=== PATIENT | female | born 1995 | race Caucasian/White ===

== ENCOUNTER → 2017-03-11 | Outpatient (CLI) | payer OTHER ==
[~2017-03-11] MED LIST: MOTR200T44 PO; TYLE325T5 PO
--- NOTE | 2017-03-11 10:28 | REP ---
MRI of the left knee: The patient is a history of prior left knee surgery. The type surgery performed is not delineated. Current study is performed for symptoms of meniscus tear. There are no comparison plain films or comparison MRI studies. The study is performed with proton density and T2-weighted data sets in sagittal, axial and coronal projections. There is a joint effusion. There is a Menchaca's cyst. There is T2 signal compatible with edema in the fascial planes posteriorly adjacent to the Menchaca's cyst and along the posterior margin of the distal femoral shaft. The articular cartilage of the patella and trochlea is unremarkable. The articular cartilage of the medial lateral compartments is unremarkable. The the patient has had anterior cruciate graft procedure. There are interference screws in the distal femur and proximal tibia. There is significant susceptibility artifact arising from the interference screws significantly degrading image quality. I have the impression that the femoral tunnel is positioned posteriorly in relation to the tibial tunnel. I am unable to identify anterior cruciate graft fibers on either sagittal, coronal over the axial views. This could be artifact from the significant susceptibility artifacts. However, I cannot entirely discounted injury to the graft. The posterior cruciate ligament is unremarkable. The quadriceps and patellar tendons are unremarkable. The lateral collateral ligament complex is unremarkable. There is T2 signal adjacent to the medial collateral ligament compatible with medial collateral ligament sprain. The lateral meniscus has a normal appearance. In the lateral medial meniscus posterior horn there signal linear signal intersecting with the inferior articular surface compatible with posterior horn flap tear. The adjacent to this there appears to be degenerative signal within the posterior horn. The anterior horn and body of the medial meniscus are unremarkable. There is T2 signal adjacent to the interference screws in the distal femur proximal tibia of uncertain significance, susceptibility artifact versus marrow edema. Impression: Findings are compatible with a small flap tear posteromedially in the medial meniscus with adjacent degenerative signal. The lateral meniscus is unremarkable. There is T2 signal in the fascial planes posteriorly along the posterior margin of the distal femoral shaft and adjacent to the Menchaca's cyst compatible with soft tissue edema. There is a joint effusion. There is T2 signal adjacent to the interference screws in the femur and tibia, artifact from the susceptibility artifact versus marrow edema. On the sagittal images the femoral tunnel appears to be placed posteriorly in relation to the tibial tunnel. I am unable to identify anterior cruciate graft fibers. This could be artifact from the significant susceptibility artifacts arising from interference screws or could represent graft injury. There is a probable medial collateral ligament sprain. Signed by Moise Phillips MD 03/11/2017 10:19 A
== END ==
LOC: M RAD 07:26
PROVIDERS: ATTEND Orthopaedic Surgery
DX: S83.207A Unspecified tear of unspecified meniscus, current injury, left knee, initial encounter (principal); M71.22 Synovial cyst of popliteal space [Baker], left knee; M25.462 Effusion, left knee

== ENCOUNTER 2019-05-29 11:35 | Emergency (ER) | payer MEDICAID, OTHER, SELFPAY ==
[~2019-05-29] VITALS: Ht 175.3 cm; Wt 46.9 kg
[2019-05-29 12:28] LABS: BASO % 0.4 % (0.0-1.0); EOS # 0.1 10^3/uL (0.0-0.50); EOS % 1.3 % (0.0-3.0); HEMATOCRIT 37.2 % (36.0-47.0); HEMOGLOBIN 12.3 g/dl (12.0-15.5); LYMPH # 2.2 10^3/uL (1.5-6.5); LYMPH % 32.2 % (24.0-44.0); MEAN CORPUSCULAR HEMOGLOBIN 29.5 pg (27.0-33.0); MEAN CORPUSCULAR HGB CONC 33.1 g/dl (32.0-36.5); MEAN CORPUSCULAR VOLUME 89.2 fl (80.0-96.0); MONO # 0.5 10^3/uL (0.0-0.8); MONO % 7.3 % (0.0-5.0); NEUTROPHILS # 3.9 10^3/uL (1.8-7.7); NEUTROPHILS % 58.5 % (36.0-66.0); PLATELET COUNT, AUTOMATED 242 10^3/uL (150-450); RED BLOOD COUNT 4.17 10^6/uL (4.00-5.40); WHITE BLOOD COUNT 6.7 10^3/uL (4.0-10.0)
[2019-05-29 12:50] LABS: ALBUMIN 4.2 GM/DL (3.2-5.2); ALT/SGPT 19 U/L (12-78); BILIRUBIN,DIRECT 0.2 MG/DL (0.0-0.2); BILIRUBIN,TOTAL 0.6 MG/DL (0.2-1.0); BLOOD UREA NITROGEN 10 MG/DL (7-18); CALCIUM LEVEL 9.1 MG/DL (8.5-10.1); CARBON DIOXIDE LEVEL 30 MEQ/L (21-32); CHLORIDE LEVEL 107 MEQ/L (98-107); CREATININE FOR GFR 0.82 MG/DL (0.55-1.30); GLOMERULAR FILTRATION RATE > 60.0 (>60); GLUCOSE, FASTING 83 MG/DL (70-100); LIPASE 163 U/L (73-393); POTASSIUM SERUM 3.9 MEQ/L (3.5-5.1); SODIUM LEVEL 143 MEQ/L (136-145); TOTAL PROTEIN 6.6 GM/DL (6.4-8.2)
--- NOTE | 2019-05-29 15:40 | REP ---
PELVIC ULTRASOUND: Real-time sonographic evaluation of the pelvis performed utilizing transabdominal and endovaginal technique. The bladder measures 8.4 x 6.3 x 9.9 cm. Uterus measures 8.1 x 3.5 x 5.7 cm. Endometrial thickness is 4 mm. IUD is seen in the endometrial canal appearing to be in good position. Ovaries are normal in size and echotexture, right ovary measuring 2.8 x 2.1 x 2.0 cm and left ovary 2.2 x 1.9 x 1.8 cm. There is no adnexal mass or free fluid. No torsion is seen bilaterally, resistive index right ovary 0.70 and left ovary 0.59. IMPRESSION: IUD appears to be well positioned in the endometrial canal. The study is otherwise normal. Electronically Signed by Moise Underwood MD 05/30/2019 12:12 A
[2019-05-29 16:03] VITALS: BP 109/72
[2019-05-29] MEDS ORDERED: FLAG500T PO (16:12)
[2019-05-29 16:40] LABS: CHLAMYDIA DNA AMPLIFICATION NEGATIVE (NEGATIVE); GC DNA AMPLIFICATION NEGATIVE (NEGATIVE)
== END 2019-05-29 16:29 | disposition home or self-care (01) ==
LOC: M ED 11:35
DX: N76.0 Acute vaginitis (principal); Z97.5 Presence of (intrauterine) contraceptive device

== ENCOUNTER → 2019-12-08 | Outpatient (CLI) | payer MEDICAID, OTHER ==
[~2019-12-08] MED LIST changes: +FLAG500T PO
--- NOTE | 2019-12-09 09:25 | REP ---
MRI left knee without contrast: History: Cruciate ligament strain. The patient reports giving out, recurrent sprain. Rule out meniscal tear. Comparison left knee MRI study of March 11, 2017. Technique: Sagittal, axial, and coronal proton density T2-weighted scans were obtained with and without fat saturation in the usual fashion. Findings: There is considerable magnetic field susceptibility artifact emanating from the femoral and tibial intraosseous tunnel hardware associated with anterior cruciate ligament repair. The transferred tendon graft is intact across the synovium and as seen within the tibial tunnel. It does not appear disrupted. Posterior cruciate ligament is unremarkable. Cortical and medullary bone signal intensity are otherwise normal. There is a small quantity of knee joint fluid. A tiny Menchaca's cyst is seen. Medial and lateral patellar retinacular structures appear intact. No lateral meniscal tear is seen. The tear pattern previously observed in the posterior horn of the medial meniscus on the 2017 prior study is improved. There is still a little increased signal intensity in the posterior horn at the inferior articular margin. No displaced meniscal material is seen. No new meniscal tear is appreciated. No articular cartilaginous lesion is seen. No evidence of medial or lateral collateral ligament disruption. Impression: Status post ACL reconstruction surgery. ACL tendon graft appears intact. Improved appearance of the previously noted posterior horn medial meniscal tear. No new meniscal defect is seen. Minimal joint fluid and small Menchaca's cyst. Electronically Signed by Edmundo Rice MD 12/09/2019 10:00 A
== END ==
LOC: M RAD 11:25
PROVIDERS: ATTEND Orthopaedic Surgery Sports Medicine
DX: M71.21 Synovial cyst of popliteal space [Baker], right knee (principal); S83.512A Sprain of anterior cruciate ligament of left knee, initial encounter; X58.XXXA Exposure to other specified factors, initial encounter; Y92.9 Unspecified place or not applicable; Y93.9 Activity, unspecified

== ENCOUNTER → 2019-12-19 | Outpatient (CLI) | payer OTHER ==
--- NOTE | 2019-12-19 17:25 | REP ---
Clinical: Pain with history of anterior cruciate ligament (ACL) repair. Technique: Axial noncontrast images through the left knee with coronal and sagittal re-formations. Findings: The patient is noted to be status post ACL reconstruction surgery. The ACL tendon graft appears intact. The osseous structures are relatively normal and there is no evidence for periosteal reaction or surrounding inflammatory changes to suggest osteomyelitis or infectious/inflammatory change. Surrounding musculature and subcutaneous tissues appear relatively normal. No significant effusion. Impression: Evidence for ACL reconstruction surgery. No obvious acute process or pathology appreciated. Electronically Signed by Shaheen Castellanos MD 12/19/2019 05:16 P
== END ==
LOC: M RAD 14:35
PROVIDERS: ATTEND Orthopaedic Surgery Sports Medicine
DX: S83.512A Sprain of anterior cruciate ligament of left knee, initial encounter (principal); X58.XXXA Exposure to other specified factors, initial encounter; Y92.9 Unspecified place or not applicable; Y93.9 Activity, unspecified

== ENCOUNTER → 2020-02-19 | Outpatient (CLI) | payer OTHER | LOC: M LABSMTC 11:56 | PROVIDERS: ATTEND Anesthesiology | DX: Z01.818 Encounter for other preprocedural examination (principal); Z11.59 Encounter for screening for other viral diseases ==

== ENCOUNTER 2020-02-22 08:40 | Day surgery (SDC) | payer OTHER ==
[~2020-02-22] VITALS: Ht 153.7 cm; Wt 47.6 kg
[~2020-02-22 08:40] MED LIST changes: +LR 1,000 ML IV ONE; +ceFAZolin SOD 2 GM in IV 1 EA IV ONE
[2020-02-22] MEDS ORDERED: ROPIvacaine 0.5% 30ML INJECTION (J2795 PER 1MG) As Ordered ONE (11:13)
[2020-02-22] MEDS ORDERED: LIDOCAINE 2% 100MG/5ML SDV (FOR ANES.) As Ordered ONE (11:35)
[2020-02-22] MEDS ORDERED: dexameTHASONE 4 MG/ML 1ML VIAL (J1100 PER 1MG) As Ordered ONE (11:35)
[2020-02-22] MEDS ORDERED: fentaNYL 250 MCG/5 ML INJECTION (J3010) As Ordered ONE (11:35)
[2020-02-22] MEDS ORDERED: ONDANSETRON 4MG/2ML VIAL As Ordered ONE (11:35)
[2020-02-22] MEDS ORDERED: propofoL 200 MG/20 ML VIAL As Ordered ONE (11:35)
[2020-02-22] MEDS ORDERED: MIDAZOLAM INJ 2MG/2ML VIAL (J2250 PER 1MG) As Ordered ONE (11:35)
[2020-02-22] MEDS ORDERED: ePHEDrine SULFATE 25 MG/5 ML(5MG/ML) SYRINGE As Ordered ONE (11:41)
[2020-02-22] MEDS ORDERED: ACETAMINOPHEN 1000MG 100ML IV BTL (OFIRMEV) (J0131 PER 10MG) As Ordered ONE (12:17)
[2020-02-22] MEDS ORDERED: fentaNYL 100 MCG/2 ML INJECTION (J3010) As Ordered ONE (14:11)
[2020-02-22] MEDS: fentaNYL 100 MCG/2 ML INJECTION (J3010) IV PRN ×2 (14:12→14:17)
[2020-02-22] MEDS ORDERED: ONDANSETRON 4MG/2ML VIAL IV PRN ×2 (14:15)
[2020-02-22] MEDS ORDERED: ACETAMINOPHEN TAB 650MG DOSE (2X325MG) PO PRN (14:15)
[2020-02-22] MEDS ORDERED: MORPHINE 2 MG/ML 1ML VIAL (J2270) IV PRN (14:15)
[2020-02-22] MEDS ORDERED: METOCLOPRAMIDE INJ 10MG/2ML VIAL (J2765 PER 1) IV PRN (14:15)
[2020-02-22] MEDS ORDERED: LR 1,000 ML IV SCH ×2 (14:15)
[2020-02-22] MEDS ORDERED: PERCOCET 5MG/325MG TAB PO PRN ×2 (14:15)
[2020-02-22 15:30] VITALS: BP 119/83
--- NOTE | 2020-02-28 09:46 | RO ---
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 PROCEDURE PERFORMED: Left knee arthroscopy, tibial tunnel bone grafting, and preparation of femoral tunnel without removal of interference screw. SURGEON: Dr. Efraín Fitzpatrick MOLD YARD CRANE OPERATOR: Deny Clemente PA-C. ANESTHESIA: General anesthetic. DATABASE DEVELOPMENT PROJECT MANAGER: Emily OPERATIVE PREAMBLE: This 25-year-old female had two failed ACL cadaver graft reconstructions. She had marked dilation on the tibial side up to 15 or 16 mm. She had appropriate placed tunnel on the femur side as well as appropriately placed metal interference screw. We talked about the pros, cons, risk, benefits of going ahead with the surgery as she continued to have an unstable knee with obvious ACL deficiency. She wished to go ahead. We reiterated the risks in preoperative holding, marked the left lower extremity, and proceeded to surgery. DESCRIPTION OF PROCEDURE: The patient was brought to the operating theater. They were placed supine on the operating room table. All bony prominences were padded. Sequential compression devices (SCDs) were used on the contralateral leg. 2 grams IV Ancef was administered. 24-inch tourniquet was applied to the left thigh and appropriately padded. Left-sided stress positioner was used. The limb was prepped and draped in the usual sterile fashion, allowing over 3 minutes prep solution drying time. Preoperative time-out was performed to confirm the site, the patient, and the surgery. We began by elevating the leg, inflating the tourniquet to 250 mmHg. I made standard high anterolateral as well as anteromedial arthroscopy portals. I examined the entire intra-articular extent of the knee. Patellofemoral cartilage was normal as was the medial and lateral tibiofemoral cartilage. Medial and lateral meniscus appeared normal. ACL graft appeared attenuated, stretched out, and insufficient. It was going up to the tibial tunnel. In the femoral tunnel, there was about 50% of the fibers remaining. This was debrided using a shaving instrument. The entire ACL graft was removed. Knee was hyperflexed to 130 degrees. A combination of mary, curettes, and arthroscopic biter instruments were used to moved the tissue from the previously made femoral tunnel. Attempted to identify the screw. This was buried under bone; however, the distal end of the previous T-shaped metal implant that was initially used on her first ACL reconstruction was identified and left in situ as well as the screw. Bone tunnel appeared to be in appropriate location. Bone tunnel length was about 2 cm long. Back wall was intact. Guidewire was placed into the tunnel and reamed up to 7 mm. Edges were thoroughly cleaned with a shaving instrument. I then turned my attention to the tibial side. I made the previous anteromedial incision on the proximal anteromedial border of the tibia. Again, this was extended down through skin and subcutaneous tissues. Identified the previously made tunnel. I passed a guidewire up into the tunnel. Sequentially reamed up to a size 14 mm reamer. I left small shell of surrounding bone about a millimeter around in the proximal tibia so it does not blow out the proximal intra- articular entrance to the tibial tunnel. I thoroughly prepared the tunnel down to bleeding bone all the way around, 360 degrees. Took arthroscopy pictures throughout. I then impacted the 14 mm Arthrex pre-contoured dowel into the proximal hole. The previously inserted interference screw was attempted to be reamed down; however, I had to work around this and taking it out would have resulted in too large of a tibial defect, so I backed up the size 14 mm dowel with the size 16 mm dowel. This achieved quite good interference fit, both in the proximal end and distal end of the tunnel. The dowel was then cut short. This was smoothed down to smooth edges and in the inferior most aspect, there was just a small remaining tibial area that was bone grafted with the Arthrex AlloSync as well. Final arthroscopy pictures were taken. Edges of the tunnels were cleaned up using shaving instrument and smoothed down and slightly recessed. Knee was thoroughly irrigated. Scope was withdrawn. Tourniquet taken down. All arthroscopy portals as well as the incision was thoroughly irrigated with normal saline. Subcutaneous tissue was closed with interrupted #2-0 Vicryl and skin with #3-0 Monocryl. 5 mL of 0.25% ropivacaine was instilled in and around the incision sites. Steri-Strips were applied. Wound was cleaned with wet and dry dressing, followed by application of Adaptic, 4 x 8 gauze, ABD dressing, and sterile 6-inch Adrian bandage. The patient was woken up from the general anesthetic, transferred off the operating table, and taken to postanesthetic care unit in stable condition. All sponge, needle, and instrument counts were correct. Estimated blood loss 50 mL. PLAN: The patient is to be weightbearing as tolerated. Use crutches for 1-2 weeks. She will be discharged home according to day surgery criteria. Prescription called into the pharmacy of choice. Followup in the office in 2 weeks' time. The orthodontic technician assistant, Deny Clemente, was instrumental in achieving visualization, passing instruments, holding instruments, and completing the case. CRISTINO
== END 2020-02-22 15:38 | disposition home or self-care (01) ==
LOC: M SDC 08:40
PROVIDERS: ATTEND Orthopaedic Surgery Sports Medicine
DX: M23.52 Chronic instability of knee, left knee (principal); G43.909 Migraine, unspecified, not intractable, without status migrainosus; F17.290 Nicotine dependence, other tobacco product, uncomplicated
CPT/HCPCS: 29888; 81025; C1762; J0131; J0690; J1100; J2250; J2405; J2795; J3010

== ENCOUNTER → 2020-06-17 | Outpatient (CLI) | payer OTHER ==
[~2020-06-17] MED LIST changes: +ISOVUE-300 61% 50ML VIAL As Ordered ONE; -LR 1,000 ML IV ONE; +PROHANCE 279.3MG/ML 5ML VIAL As Ordered ONE; -ceFAZolin SOD 2 GM in IV 1 EA IV ONE
--- NOTE | 2020-06-17 13:54 | REPVR ---
PROCEDURE INFORMATION: Exam: MR Left Upper Extremity Joint Without and With Contrast; Shoulder Exam date and time: 06/17/2020 8:43 AM Age: 25 years old Clinical indication: Pain; Shoulder; Left; Additional info: Other synovitis and tenosynovitis, left shoulder TECHNIQUE: Imaging protocol: MR of the Left upper extremity without and with contrast. Exam focused on the shoulder. 3D rendering (Not supervised by radiologist): MIP and/or 3D reconstructed images were created by the technologist. Contrast material: PROHANCE; Contrast volume: 2 ml; Contrast route: INTRA-ARTICULAR (ARTHROGRAM); COMPARISON: XA - SHOULDER ARTHROGRAM WITH MR-CT LEFT 06/17/2020 7:27:41 AM (report not provided) FINDINGS: Bones and cartilage: Mild chondromalacia involves the glenohumeral joint. There are mild productive and degenerative cystic changes along the greater tuberosity. Joint spaces: Prior to the injection, fluid in the glenohumeral joint is within physiologic limits. Injected contrast is present in the joint without extension into the subacromial, subdeltoid bursa. The acromioclavicular joint is maintained. Glenoid labrum: No tear of the glenoid labrum is identified. Bursae: The subacromial, subdeltoid bursa contains trace fluid prior to the contrast injection. Supraspinatus tendon: There is mild to moderate supraspinatus tendinopathy with some partial-thickness bursal surface fraying. Infraspinatus tendon: There is mild infraspinatus tendinopathy. Subscapularis tendon: Unremarkable. No evidence of tear. Teres minor tendon: Unremarkable. No evidence of tear. Tendon of biceps brachii: Unremarkable. No evidence of tear. Glenohumeral ligaments: Unremarkable. Muscles: Unremarkable. Soft tissues: Unremarkable. IMPRESSION: 1. Degenerative changes as described. 2. Rotator cuff tendinopathy as described, without full-thickness tear identified. 3. Trace fluid in the subacromial, subdeltoid bursa, suggesting bursitis. 4. No tear of the glenoid labrum identified. COMMENTS: See separate arthrogram injection procedure report for procedural description and findings. Electronically signed by: Sridhar Giron On 06/17/2020 13:54:32 PM
--- NOTE | 2020-07-02 09:18 | REP ---
LEFT SHOULDER ARTHROGRAM The procedure was performed under the direct supervision of Dr. Rice. The benefits and risks including, but not limited to pain, infection, bleeding, and anaphylaxis were explained to the patient and informed consent was obtained. The left glenohumeral joint space was localized using fluoroscopic guidance. The skin was prepped and draped in a sterile fashion. 1% Lidocaine was used as a local anesthetic. Using fluoroscopic guidance, a 22-gauge needle was inserted and advanced into the joint. 0.5 mL of Isovue-300 was injected to verify placement. 11 mL of a solution containing 20 mL of sterile saline and 0.15 mL of ProHance was injected. The needle was then removed. The patient tolerated the procedure well and there were no immediate complications. Less than 6 seconds of fluoroscopy time was utilized for this procedure. [facility]ERSel[facility]
== END ==
LOC: M RADPRO 06:34
PROVIDERS: ATTEND Orthopaedic Surgery Sports Medicine
DX: M65.812 Other synovitis and tenosynovitis, left shoulder (principal)
CPT/HCPCS: 23350; 73223; 77002; A9576; Q9967

== ENCOUNTER → 2020-07-06 | Outpatient (CLI) | payer OTHER ==
[~2020-07-06] MED LIST changes: -ISOVUE-300 61% 50ML VIAL As Ordered ONE; -PROHANCE 279.3MG/ML 5ML VIAL As Ordered ONE
== END ==
LOC: M LABSMTC 08:09
PROVIDERS: ATTEND Anesthesiology
DX: Z01.812 Encounter for preprocedural laboratory examination (principal); Z20.828 Contact with and (suspected) exposure to other viral communicable diseases
CPT/HCPCS: C9803; U0003

== ENCOUNTER 2020-07-11 10:16 | Day surgery (SDC) | payer OTHER ==
[~2020-07-11] VITALS: Ht 153.7 cm; Wt 48.0 kg
[~2020-07-11 10:16] MED LIST changes: +LR 1,000 ML IV ONE; +ceFAZolin SOD 2 GM in IV 1 EA IV ONE
[2020-07-11] MEDS ORDERED: ONDANSETRON 4MG/2ML VIAL As Ordered ONE (10:57)
[2020-07-11] MEDS ORDERED: MIDAZOLAM INJ 2MG/2ML VIAL (J2250 PER 1MG) As Ordered ONE (10:57)
[2020-07-11] MEDS ORDERED: KETOROLAC 60MG 2ML VIAL As Ordered ONE (10:57)
[2020-07-11] MEDS ORDERED: SUGAMMADEX SODIUM 500 MG/5 ML VIAL (BRIDION) As Ordered ONE (10:57)
[2020-07-11] MEDS ORDERED: ROCURONIUM BROMIDE 50 MG/5 ML VIAL As Ordered ONE (10:57)
[2020-07-11] MEDS ORDERED: fentaNYL 100 MCG/2 ML INJECTION (J3010) As Ordered ONE ×2 (10:57→14:58)
[2020-07-11] MEDS ORDERED: dexameTHASONE 4 MG/ML 1ML VIAL (J1100 PER 1MG) As Ordered ONE (10:57)
[2020-07-11] MEDS ORDERED: propofoL 200 MG/20 ML VIAL As Ordered ONE (10:57)
[2020-07-11] MEDS ORDERED: LIDOCAINE 2% 100MG/5ML SDV (FOR ANES.) As Ordered ONE (10:57)
[2020-07-11] MEDS ORDERED: ACETAMINOPHEN 1000MG 100ML IV BTL (OFIRMEV) (J0131 PER 10MG) As Ordered ONE (10:57)
[2020-07-11] MEDS ORDERED: ROPIvacaine 0.5% 30ML INJECTION (J2795 PER 1MG) As Ordered ONE (13:25)
[2020-07-11] MEDS ORDERED: HYDROmorphone HCL 2 MG/ML 1ML VIAL (J1170) As Ordered ONE (13:36)
[2020-07-11] MEDS: fentaNYL 100 MCG/2 ML INJECTION (J3010) IV PRN ×4 (14:55→15:10)
[2020-07-11] MEDS: oxyCODONE 5MG TAB PO PRN ×2 (14:55→15:30)
[2020-07-11] MEDS ORDERED: oxyCODONE 5MG TAB As Ordered ONE (14:58)
[2020-07-11] MEDS ORDERED: LR 1,000 ML IV SCH ×2 (15:00→15:15)
[2020-07-11] MEDS ORDERED: MEPERIDINE INJ 25 MG/ML VIAL (J2175) IV PRN (15:00)
[2020-07-11] MEDS ORDERED: ONDANSETRON 4MG/2ML VIAL IV PRN ×2 (15:00→15:15)
[2020-07-11] MEDS ORDERED: METOCLOPRAMIDE INJ 10MG/2ML VIAL (J2765 PER 1) IV PRN (15:00)
[2020-07-11] MEDS ORDERED: ACETAMINOPHEN TAB 650MG DOSE (2X325MG) PO PRN (15:15)
[2020-07-11] MEDS ORDERED: PERCOCET 5MG/325MG TAB PO PRN (15:15)
[2020-07-11] MEDS ORDERED: MORPHINE 2 MG/ML 1ML VIAL (J2270) IV PRN (15:15)
[2020-07-11 16:50] VITALS: BP 144/87
--- NOTE | 2020-07-16 08:50 | RO ---
DATE OF OPERATION: 07/11/2020 PREOPERATIVE DIAGNOSIS: Left knee ACL instability. POSTOPERATIVE DIAGNOSIS: Left knee ACL instability. PLANNED PROCEDURE: Left knee hamstring autograft to ACL reconstruction, second stage revision to prior bone grafting. PROCEDURE PERFORMED: Left knee hamstring autograft to ACL reconstruction, second stage revision to prior bone grafting. SURGEON: Efraín Fitzpatrick MD LINUX ENGINEER: ANESTHESIA: OPERATIVE PREAMBLE: This 25-year-old female had ACL reconstructions. She is to have second stage revision following initial bone grafting by myself. We discussed the pros, cons, risks and benefits of this, marked the left lower extremity and proceeded to surgery. OPERATIVE REPORT: The patient was brought to the operating theater and administered general anesthetic. She was placed supine on the operating table. All bony prominences were padded. SCDs were used on the down leg as well as bear hugger. Stress positioner was used to patients left side. 2 gm of IV Ancef was administered prior to the start of the case. The limb was prepped and draped in usual sterile fashion with Chlorhexidine-based prep solution allowing over 3 minutes for the prep solution drying time prior to draping. Preoperative time out was performed confirming the site of patients surgery. She had full range of motion on EUA. She had obvious 2+ Ryne and 2+ anterior drawer. Small incision centered over the left anteromedial border of the tibia using the old incision and carried down slightly distally was made, carried through subcutaneous tissue achieving meticulous hemostasis. Tourniquet was inflated prior to this after limb was elevated at 250 mmHg. Identified the hamstring tendon. I released any bands. I used the open-ended tendon harvester to fully harvest the retained gracilis tendons after opening the sartorius fascia. I then aligned each end of the tendons at length of approximately 19 cm long, whipstitched each end for length of 1 inch on either end of the tendons using #2 FiberWire suture. One end was affixed the TightRope RT Arthrex button and passed through the ABS button loop system. I tripled over the graft. Docked the free end and those sutures affixed over the graft as well as over the ABS button suture system. This was tied in place. Tension was placed. I used locking loop #2 FiberWire suture 1 and 2 cm beyond each end of the graft with knots buried inside and cut short with sequential tension and taping of the grafts. The graft length was 6 cm. The graft end was 8 mm on both ends. Graft was placed on tension and covered with wet gauze. I turned my attention to the interarticular portion of the knee. Arthroscopy portals were made anterolaterally as well as anteromedially. Medial and lateral gutters were entered and no loose body. No evidence of cartilage damage to the patellofemoral joint, medial or lateral compartments. Normal appearing medial and lateral meniscus. Bone graft appeared to have been fully healed. I used the Arthrex inside-out femoral guide. I drilled for my planned tunnel in appropriate anatomic location. This was right in line with the previously based metal screw. As such I made the planned tunnel site just slightly anteriorly to this as two-part posteriorly would have blown out the posterior back wall. She had relatively small anatomy. I reversed reamed this for length of just short of 2 cm. The reamer contacted the metal screw and the tip broke off. However, I was able to remove that. I cleaned up the edge of the tunnel, took arthroscopy pictures throughout the case. I turned my attention to the tibial tunnel. I made this anterior to the PCL as well as in line with the anterior more lateral meniscus. I drilled this for length of approximately 5 cm. This measured 8 mm in diameter as well and then I cleaned up the tunnel. I placed a PassPort cannula anteromedially. I used FiberStick sutures to pass suture through the tibial tunnel. I removed the PassPort cannula. Graft was then brought in and locked into the femoral tunnel, succeeded to place for length of approximately 18 mm. This was slightly shorter and anterior due to the revisional circumstances and previously placed metal screw. I then brought the graft out the tibial side using backup sutures as well as luggage tag type stitch of the ABS Button System. This was fully secured in place. Arthroscopy pictures were taken and saved onto the system. Knee was cycled through range of motion, ABS button 14 mm was then affixed to the sutures as well as backup sutures and tightened down into place using internal locking mechanism. Grafts were stapled and had very solid endpoint that I was quite satisfied with. Sutures were cut short on both ends and final tensioning was achieved on the femoral side as well prior to cutting the sutures. Wounds were thoroughly irrigated. Subcutaneous tissue closed with interrupted 2- 0 Vicryl sutures and skin with 3-0 Monocryl. 20 mL of 1% Marcaine was instilled in and around the incision sites including hamstring harvest site. Steri-Strips were applied. Adaptic, 4 x 8 gauze and ABD dressing and over wrapped with sterile 6 inch Adrian bandage and the patient placed into hinged knee brace and locked. Tourniquet was taken down prior to the end of the case. Total tourniquet time 94 minutes. No complications. Estimated blood loss 50 mL. The patient was transferred off the operating table and taken to postanesthesia care unit in stable condition after having been woken up from general anesthesia. Donna Pressley was instrumental on holding retractors, achieving visualization during the case. Plan for the patient will be discharge home according to day surgery criteria. She will follow up in the office in two weeks time. She will be weightbearing as tolerated but likely on crutches for at least the first two weeks. The plan for the patient is to be going fairly slow in terms of physical therapy. This is a third time revision. Prescriptions were sent into her pharmacy of choice. CRISTINO
== END 2020-07-11 16:50 | disposition home or self-care (01) ==
LOC: M SDC 10:16
PROVIDERS: ATTEND Orthopaedic Surgery Sports Medicine
DX: M23.52 Chronic instability of knee, left knee (principal); J45.909 Unspecified asthma, uncomplicated; G43.909 Migraine, unspecified, not intractable, without status migrainosus; F17.218 Nicotine dependence, cigarettes, with other nicotine-induced disorders
CPT/HCPCS: 29888; 81025; C1713; J0131; J0690; J1100; J1170; J1885; J2250; J2405; J2765; J2795; J3010

== ENCOUNTER → 2020-10-07 | Outpatient (CLI) | payer OTHER ==
[~2020-10-07] MED LIST changes: -LR 1,000 ML IV ONE; -ceFAZolin SOD 2 GM in IV 1 EA IV ONE
--- NOTE | 2020-10-07 13:40 | REP ---
INDICATION: PAIN IN RT KNEE COMPARISON: None. TECHNIQUE: AP, lateral, bilateral oblique and sunrise views. FINDINGS: The osseous structures and joint spaces are intact and normal. There is no evidence for acute fracture or dislocation. No joint effusion is appreciated. Surrounding soft tissues are unremarkable. No subcutaneous emphysema or radiodense foreign body. IMPRESSION: Normal examination. No acute fracture or dislocation. <Electronically signed by Shaheen Castellanos > 10/07/20 [id number]
== END ==
LOC: M SOG 09:07 → M ADAMS 09:07
PROVIDERS: ATTEND Orthopaedic Surgery Sports Medicine
DX: M25.561 Pain in right knee (principal)

== ENCOUNTER → 2020-11-24 | Outpatient (CLI) | payer OTHER ==
--- NOTE | 2020-11-24 11:20 | REP ---
INDICATION: LEFT KNEE PAIN. COMPARISON: None. TECHNIQUE: Four views left knee. FINDINGS: Metallic hardware is seen in the distal femur and proximal tibia. The joint spaces are normal in thickness. There appears to be a punctate metallic density in the posteromedial joint space. Few tiny calcifications are seen superior to the tibial spines. There does not appear to be a significant joint effusion radiographically. IMPRESSION: Postsurgical changes as above. <Electronically signed by Moise Underwood > 11/24/20 [id number]
== END ==
LOC: M SOG 09:24
PROVIDERS: ATTEND Orthopaedic Surgery Sports Medicine
DX: S83.512D Sprain of anterior cruciate ligament of left knee, subsequent encounter (principal); W18.42XA Slipping, tripping and stumbling without falling due to stepping into hole or opening, initial encounter; Z47.89 Encounter for other orthopedic aftercare; Z96.7 Presence of other bone and tendon implants

== ENCOUNTER → 2020-12-04 | Outpatient (CLI) | payer OTHER ==
--- NOTE | 2020-12-04 10:25 | REP ---
INDICATION: EVAL FOR ACL GRAFT RUPTURE, ORTHO AFTERCARE. COMPARISON: 12/08/2019, 03/11/2017. TECHNIQUE: Multiple sequences obtained in the axial, coronal and sagittal planes. FINDINGS: Menisci: The tear of the posterior horn of the medial meniscus is again noted, as seen on prior studies. No new meniscal tear is seen. Cruciate ligaments: Intact. ACL graft appears intact with no obvious tear. Evaluation is somewhat limited due to metallic hardware in the distal femur and proximal tibia. There is an area of high signal on T2 weighted images along the intact ACL graft in the distal tibial tunnel which may represent some complex fluid and/or granulation tissue at that location. Collateral ligaments: Intact. Extensor mechanism/patellar retinacula: Intact. Cartilage: Smooth, no osteochondral defect. There is mild chondromalacia posteriorly and peripherally of the lateral femoral condyle. Bone marrow: Normal signal, no edema or occult fracture. Joint fluid: There is a small joint effusion. Popliteal region: There is a tiny amount of fluid in the medial popliteal fossa. IMPRESSION: Somewhat limited exam due to metallic hardware in the distal femur and proximal tibia. No obvious tear of the ACL graft. There is high signal along the intact graft in the region of the distal tibial tunnel which may represent some complex fluid and/or granulation tissue at that location. Posterior horn medial meniscus again demonstrates prior tear, no new tear is seen. Small joint effusion. Tiny amount of fluid in the medial popliteal fossa. <Electronically signed by Moise Underwood > 12/04/20 1020
== END ==
LOC: M RAD 07:45
PROVIDERS: ATTEND Orthopaedic Surgery Sports Medicine
DX: Z47.89 Encounter for other orthopedic aftercare (principal)

== ENCOUNTER 2021-02-15 11:26 | Emergency (ER) | payer OTHER ==
[~2021-02-15] VITALS: Ht 152.4 cm; Wt 46.8 kg
[2021-02-15] MEDS ORDERED: ACET-683 PO (11:36)
[2021-02-15] MEDS ORDERED: NS 1,000 ML IV SCH (12:30)
[2021-02-15] MEDS ORDERED: KETOROLAC 30 MG/ML 1ML VIAL IV ONE (12:30)
[2021-02-15 12:46] LABS: URINE PREG TEST NEGATIVE (NEGATIVE)
[2021-02-15 12:49] LABS: BASO # 0.1 10^3/uL (0.0-0.2); BASO % 0.4 % (0.0-1.0); EOS # 0.1 10^3/uL (0.0-0.5); EOS % 0.6 % (0.0-3.0); HEMATOCRIT 47.6 % (36.0-47.0); HEMOGLOBIN 15.3 g/dl (12.0-15.5); LYMPH % 15.9 % (24.0-44.0); MEAN CORPUSCULAR HEMOGLOBIN 29.7 pg (27.0-33.0); MEAN CORPUSCULAR HGB CONC 32.1 g/dl (32.0-36.5); MEAN CORPUSCULAR VOLUME 92.4 fl (80.0-96.0); MONO # 0.7 10^3/uL (0.0-0.8); MONO % 5.8 % (2.0-8.0); NEUTROPHILS # 9.7 10^3/uL (1.5-8.5); NEUTROPHILS % 77.1 % (36.0-66.0); PLATELET COUNT, AUTOMATED 302 10^3/uL (150-450); RED BLOOD COUNT 5.15 10^6/uL (4.00-5.40); WHITE BLOOD COUNT 12.5 10^3/uL (4.0-10.0)
[2021-02-15 13:15] LABS: BLOOD UREA NITROGEN 7 MG/DL (7-18); CALCIUM LEVEL 10.2 MG/DL (8.5-10.1); CARBON DIOXIDE LEVEL 29 MEQ/L (21-32); CHLORIDE LEVEL 105 MEQ/L (98-107); CREATININE FOR GFR 0.75 MG/DL (0.55-1.30); GLOMERULAR FILTRATION RATE > 60.0 (>60); GLUCOSE, FASTING 114 MG/DL (70-100); POTASSIUM SERUM 3.9 MEQ/L (3.5-5.1); SODIUM LEVEL 140 MEQ/L (136-145)
--- NOTE | 2021-02-15 13:29 | REP ---
INDICATION: trauma,pain. COMPARISON: None. TECHNIQUE: Five views lumbosacral spine. FINDINGS: There is no compression fracture or malalignment. There is normal lumbar lordosis. Disc spaces are well preserved. Posterior elements are intact. 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 There is sacralization of L5 with spina bifida occulta at that level. IMPRESSION: No fracture or dislocation. Transitional lumbar vertebral body. <Electronically signed by Moise Underwood > 02/15/21 [id number]
--- NOTE | 2021-02-15 13:31 | REP ---
INDICATION: trauma,pain. COMPARISON: None. TECHNIQUE: AP view pelvis. FINDINGS: There is no acute fracture, dislocation or intrinsic bone disease. The hip joints are normal in appearance. IMPRESSION: No evidence of acute fracture or dislocation. <Electronically signed by Moise Underwood > 02/15/21 [id number]
[2021-02-15 14:56] VITALS: BP 117/67
== END 2021-02-15 14:59 | disposition home or self-care (01) ==
LOC: M ED 11:26
DX: M54.5 Low back pain (principal); J45.909 Unspecified asthma, uncomplicated; M41.9 Scoliosis, unspecified
CPT/HCPCS: 72110; 72190; 80048; 81001; 84703; 85025; 96361; 96374; 99284; J1885

== ENCOUNTER → 2021-03-18 | Outpatient (CLI) | payer OTHER ==
[~2021-03-18] MED LIST changes: +ACET-683 PO
--- NOTE | 2021-03-18 12:03 | REPVR ---
PROCEDURE INFORMATION: Exam: MR Thoracic Spine Without Contrast Exam date and time: 03/18/2021 11:04 AM Age: 26 years old Clinical indication: Pain in thoracic spine; Without myelpathy or radiculopathy; Additional info: Pain in spine, scoliosis TECHNIQUE: Imaging protocol: Multiplanar magnetic resonance images of the thoracic spine without contrast. COMPARISON: No relevant prior studies available. FINDINGS: Vertebrae: Unremarkable. Spinal cord: Normal signal. No cord compression. Discs/Spinal canal/Neural foramina: No significant disc disease. No significant spinal canal stenosis. Soft tissues: Unremarkable. IMPRESSION: Unremarkable spine. Electronically signed by: Sony Waters On 03/18/2021 12:02:48 PM
--- NOTE | 2021-03-18 12:25 | REPVR ---
PROCEDURE INFORMATION: Exam: MR Lumbar Spine Without Contrast Exam date and time: 03/18/2021 11:30 AM Age: 26 years old Clinical indication: Low back pain; Additional info: Pain in spine, scoliosis TECHNIQUE: Imaging protocol: Multiplanar magnetic resonance images of the lumbar spine without intravenous contrast. COMPARISON: CR Spine. Lumbosacral, complete 02/15/2021 12:55 PM FINDINGS: Vertebrae: See "Sacrum/coccyx" finding. Spinal cord: Normal signal. No cord compression. L1-L2: No significant disc disease. No significant spinal canal stenosis. No neural foraminal stenosis. L2-L3: No significant disc disease. No significant spinal canal stenosis. No neural foraminal stenosis. L3-L4: No significant disc disease. No significant spinal canal stenosis. No neural foraminal stenosis. L4-L5: There is mild retrolisthesis at this level. There is disc space narrowing and desiccation. There are moderate degenerative end plate changes at this level. There is a moderate disc bulge with a mild/moderate superimposed central disc herniation. There is facet arthropathy and ligamentum flavum hypertrophy. There is mild bilateral neuroforaminal narrowing. L5-S1: There is mild bilateral neuroforaminal narrowing. Sacrum/coccyx: There is a transitional lumbosacral segment. There is mild sacralization of the L5 vertebra. Correlation with plain films prior to any future lumbar procedure is recommended to confirm accurate numbering of the lumbar spine. Soft tissues: Unremarkable. IMPRESSION: 1. Mild/moderate central disc herniation at L4/5. Please see details above. 2. There is a transitional lumbosacral segment. There is mild sacralization of the L5 vertebra. Correlation with plain films prior to any future lumbar procedure is recommended to confirm accurate numbering of the lumbar spine. Electronically signed by: Sony Waters On 03/18/2021 12:25:13 PM
== END ==
LOC: M RAD 10:11
PROVIDERS: ATTEND Physician Assistant
DX: M54.5 Low back pain (principal); M41.9 Scoliosis, unspecified

== ENCOUNTER → 2023-04-19 | Outpatient (CLI) | payer OTHER | LOC: M PLAIMG 07:22 | PROVIDERS: ATTEND Physician Assistant Medical | DX: M51.26 Other intervertebral disc displacement, lumbar region (principal) ==